=== PATIENT | male | born 1990 | race Caucasian/White ===

== ENCOUNTER 2020-01-17 20:39 | Emergency (ER) | payer OTHER, SELFPAY ==
[2020-01-17 21:00] VITALS: BP 152/73; PULSE 80; RESP 16; TEMP 36.8; O2SAT 97; BMI 28.2
--- NOTE | 2020-01-17 21:04 | DI.RAD.S_ITS ---
PROCEDURE: XR FOOT RT MIN 3V INDICATIONS: landscape trailer fell on foot TECHNIQUE: 3 views of the foot were acquired. COMPARISON: None. FINDINGS: Bones: No fractures or dislocations. No suspicious bony lesions. Soft tissues: No tibiotalar joint effusion. Achilles tendon appears normal. IMPRESSION: No acute radiographic findings. If pain persists, followup imaging in 5-7 days is recommended to exclude occult fracture. Dictated by: Meliza Gutierrez M.D. on 01/17/2020 at 21:47 Approved by: Meliza Gutierrez M.D. on 01/17/2020 at 21:48
--- NOTE | 2020-01-17 21:59 | ED.LOWEXIN ---
HPI - Extremity Injury (Lower) General Chief Complaint: Extremity Injury, Lower Stated Complaint: Landscape Trailor Dropped on Rt Foot Time Seen by Provider: 01/17/20 21:09 Source: patient Mode of arrival: Ambulatory Limitations: no limitations History of Present Illness HPI Narrative: 29-year-old male here for evaluation of right foot injury. Patient states that approximately 24 hours ago he had a landscaping trailer drop on his right foot. Had pain afterwards. Has an abrasion the top of his foot. Has been ambulatory but he states that it hurts to take a step. He has been using a cane to help him walk. He does state that his right foot is swollen compared the left. Other than the cane and elevation has not tried anything for symptoms right arrived Related Data Previous Rx's Medication Instructions Recorded ALBUTEROL (PROVENTIL INHALER) 2 - 4 puff IH QID #2 12/04/11 AZITHROMYCIN (ZITHROMAX Z-PHILLY) 250 mg PO QDAY #1 pck 12/04/11 PREDNISONE- (#DELTASONE) 60 mg PO Q DAY #15 12/04/11 Review of Systems Constitutional Constitutional: Denies fever(s) ENT Ears, Nose, Mouth, and Throat: Denies disequilibrium Musculoskeletal Musculoskeletal: Denies tingling Comments: Right foot pain Integumentary/Breasts Comments: Abrasion the top of the right foot Neurologic Neurologic: Denies tingling, Denies paresthesias and Denies disequilibrium Comments: Pain with walking Hematologic/Lymphatic Hematologic/Lymphatic: Denies easy bleeding and Denies easy bruising Patient History Medical History Healthy adult (Acute) alcohol intake frequency: holidays/special occasions only Exam Initial Vital Signs Initial Vital Signs: Vital Signs Temperature 98.3 F 01/17/20 21:00 Pulse Rate 80 01/17/20 21:00 Respiratory Rate 16 01/17/20 21:00 Blood Pressure 152/73 H 01/17/20 21:00 Pulse Oximetry 97 01/17/20 21:00 Const General: cooperative and comfortable Limitations: mental status not altered HENMT Head: normal to inspection and normocephalic Cardio Pulses: dorsalis pedis present on the right Skin Other: Patient has a superficial abrasion to the top of the right foot. No active bleeding. Neuro Sensory Exam: no sensory deficits noted Extrem Other: No proximal fibula tenderness. No tenderness to the right ankle. Does have a swollen right foot compared to the left from the toes up to the ankle. Able to flex and extend at the ankle. Is able to flex and extend at his toes with minimal discomfort on the top of his foot. No tenderness on the plantar aspect of his foot. Course Orders Ordered: ED Orders 01/17/20 21:04 XR foot RT min 3V Stat Vital Signs Vital signs: Vital Signs - 8 hr 01/17/20 21:00 01/17/20 22:31 Temperature 98.3 F Pulse Rate 80 67 Respiratory Rate 16 18 Blood Pressure 152/73 H 128/73 Pulse Oximetry 97 98 MDM - Extremity Injury (Lower) Imaging Data Extremity x-ray #1: Radiologist's Impression: [address] [address] XRay Report Signed Patient: Tomasz Dumont RMR#: [id number] : 1990Acct:[id number] Age/Sex: te of Service: 01/17/20 Loc: ED Accession Number: [id number] Procedure: XR foot RT min 3V Ordering Provider: Jaziel Benitez D.O. PROCEDURE: XR FOOT RT MIN 3V INDICATIONS: landscape trailer fell on foot TECHNIQUE: 3 views of the foot were acquired. COMPARISON: None. FINDINGS: Bones: No fractures or dislocations. No suspicious bony lesions. Soft tissues: No tibiotalar joint effusion. Achilles tendon appears normal. IMPRESSION: No acute radiographic findings. If pain persists, followup imaging in 5-7 days is recommended to exclude occult fracture. Dictated by: Meliza Gutierrez M.D. on 01/17/2020 at 21:47 Approved by: Meliza Gutierrez M.D. on 01/17/2020 at 21:48 [facility] Narrative Medical decision making narrative: X-ray showed no fractures. The abrasion on the top of his foot needs no intervention. He is neurovascularly intact. Does have swelling on the right compared to the left. Considered compartment syndrome however his physical exam is not consistent with this. He does not have when I would feel to be pain out of proportion. Has brisk cap refill in his toes. Does not have extreme tenderness with active and passive flexion extension of his toes. We did discuss elevation in ice. He denies any offer for crutches. We did discuss return precautions and follow-up instructions. He expressed understanding and agreement. Discharge Plan Departure Patient Disposition: Home Clinical Impression: Abrasion of skin Contusion of foot, right Qualifiers: Encounter type: initial encounter Qualified Code(s): S90.31XA - Contusion of right foot, initial encounter Discharge Date/Time: 01/17/20 22:10 Instructions: DI for Foot Pain Activity Restrictions/Additional Instructions: There were no fractures on the x-rays. You can walk on your foot however use the cane/crutches as needed. You can keep your foot elevated and to use ice. Return to the emergency department for any new or worsening symptoms Prescriptions: No Action ALBUTEROL (PROVENTIL INHALER) 2 - 4 puff IH QID Qty: 2 RF: 3 AZITHROMYCIN (ZITHROMAX Z-PHILLY) 250 mg PO QDAY Qty: 1 RF: 0 PREDNISONE- (#DELTASONE) 60 mg PO Q DAY Qty: 15 RF: 1
[2020-01-17 22:31] VITALS: BP 128/73; PULSE 67; RESP 18; O2SAT 98
== END 2020-01-17 22:10 | disposition home or self-care (01) ==
PROVIDERS: Emergency Provider Emergency Medicine
DX: S90.31XA Contusion of right foot, initial encounter (principal); S90.811A Abrasion, right foot, initial encounter; W20.8XXA Other cause of strike by thrown, projected or falling object, initial encounter
CPT/HCPCS: 73630; 99283